=== PATIENT | female | born 1990 | race Asian ===

== ENCOUNTER 2018-03-05 16:18 | Outpatient (CLI) | payer BC ==
--- NOTE | 2018-03-05 17:39 | MRI ---
MRI OF THE BRAIN WITHOUT CONTRAST: 03/05/18 COMPARISON: None. HISTORY: Chronic migraine headaches for 5 to 7 years. TECHNIQUE: Multiplanar and multisequence MRI images were obtained of the brain without contrast. FINDINGS: The brain demonstrates normal signal intensity on all obtained sequences. No restricted diffusion is seen to suggest an acute infarction. There is no evidence of hydrocephalus, intracranial hemorrhage o r extra-axial fluid collection. The expected flow voids are present. The corpus callosum, pituitary, and craniocervical junction are unremarkable. The calvarium and overlying soft tissues are unremarkable. The visualized paranasal sinuses and masto id air cells are well aerated. IMPRESSION: Normal MRI of the brain. POS: [facility]
== END 2018-03-05 16:19 | disposition home or self-care (01) ==
LOC: SCSMRI 16:18
PROVIDERS: ATTEND Family Medicine
DX: G43.009 Migraine without aura, not intractable, without status migrainosus (principal)
CPT/HCPCS: 70551

== ENCOUNTER 2018-08-23 09:03 | Outpatient (CLI) | payer BC ==
--- NOTE | 2018-08-23 12:26 | CT ---
ABDOMEN CT WITH CONTRAST PELVIC CT WITH CONTRAST: History: Abdominal distention, worsening last two months. Comparison: None. FINDINGS: ABDOMEN CT: The lung bases are clear. Heart size is normal. No pericardial effusion. The descending thoracic aort a and abdominal aorta are normal caliber. No periaortic fat stranding. There is a large hypodense mass occupying the majority of the left hepatic lobe. Hyperdense masses millan s attenuation coefficient of 3 Hounsfield units, compatible with a cyst lesion. A large hepatic cyst measuring 25.0 x 19.0 x 22.5 cm is noted. There is mild dilatation of the intrahepatic biliary system . Gallbladder is unremarkable. Visualized common bile duct is unremarkable. Pancreas, spleen, and adrenal glands are unremarkable. Symmetric enhancement of the kidneys. No obstructive uropathy. None obstructing calculus in the right renal pelvis measuring 0.8 cm. No gastrohepatic, retrocrural or periportal lymphadenopathy. Gastric mucosa, duodenum and multiple normal caliber small bowel loops are identified. Ileocecal junc tion is normal. Normal caliber appendix is noted. Visualized cecum and colon and grossly unremarkable . CT PELVIS: The uterus and adnexal structures are unremarkable. No pelvic mass, lymphadenopathy, free air or free fluid. No lytic or blastic lesions in the osseous structures. IMPRESSION: 1. Essentially cystic lesion occupying the majority of the left hepatic lobe. General surgical consul tation is recommended. Results of study discussed with Dr. Suggs 08-23-18 at 11:12 a.m. POS: [facility]
== END 2018-08-23 09:04 | disposition home or self-care (01) ==
LOC: SCSCT 09:03
PROVIDERS: ATTEND Family Medicine
DX: E65 Localized adiposity (principal); R14.0 Abdominal distension (gaseous); K76.89 Other specified diseases of liver
CPT/HCPCS: 74177